=== PATIENT | male | born 1985 | race Two or more races ===

== ENCOUNTER 2017-08-16 11:23 | Emergency (ER) | payer OTHER ==
--- NOTE | 2017-08-16 11:47 | EDPHY ---
H & P Stated Complaint: L forearm lac Time Seen by Provider: 08/16/17 11:45 HPI/ROS: HPI: This is a 32-year-old male who presents with Chief Complaint: Left forearm laceration Location: Left forearm Quality: Laceration Duration: Prior to arrival Signs and Symptoms: + bleeding, no radiation, no numbness, no weakness, no tingling, no incontinence, no decreased range of motion, no swelling, + pain, no fever Timing: Acute Severity: Moderate Context: Patient is right-hand dominant presents with epps with complaints of arm laceration. He is currently working across the street, when he accidentally slipped on the scaffolding and fell forward. He used left arm to stop his fall. He brushed left forearm against the cinder block which caused a laceration. He reports that he was wearing his hard hat and did not hit his head. Denies LOC/head injury/neck pain/dizziness/nausea/vomiting/amnesia. Reports tetanus up-to-date. He complains of pain in his left forearm without any radiation. He reports that pain increases with touching the area. Denies decreased range of motion/paresthesias/weakness. Modifying Factors: Direct pressure Comment: ROS: see HPI Constitutional: No fever, no chills, no weight loss Eyes: No blurred vision Respiratory: No shortness of breath, no cough Cardiovascular: No chest pain Gastrointestinal: No nausea, no vomiting no diarrhea Genitourinary: No dysuria Extremities: No myalgias Neurologic: No weakness, no numbness Skin: No rashes Hematologic: No bruising, no bleeding MEDICAL/SURGICAL/SOCIAL HISTORY: Medical history: Depression, hyperlipidemia Surgical history: Denies Social history: Employed. CONSTITUTIONAL: Extremely anxious male, awake and alert, no obvious distress HEENT: Atraumatic and normocephalic, PERRL, EOMI. Nares patent; no rhinorrhea; no nasal mucosal edema. Tympanic membranes clear. Oropharynx clear, no exudate and moist pink mucosa. Airway patent. No lymphadenopathy. No meningismus. Cardiovascular: Normal S1/S2, regular rate, regular rhythm, without murmur rub or gallop. PULMONARY/CHEST: Symmetrical and nontender. Clear to auscultation bilaterally. Good air movement. No accessory muscle usage. ABDOMEN: Soft, nondistended, nontender, no rebound, no guarding, no peritoneal signs, no masses or organomegaly. No CVAT. EXTREMITIES: 2/2 pulses, strength 5/5, left posterior mid-forearm shows 6 inch deep, v-shaped, laceration; no active bleeding. Left WRIST: Extension to 70, flexion to 80, radial deviation to 20 degree, ulnar deviation to 30, no scaphoid tenderness, no tenderness over ulnar styloid, no tenderness over radial styloid. Full range of motion of flexion extension DIP, PIP, MCP joints of all 5 fingers. no clubbing, no cyanosis or edema. NEUROLOGICAL: no focal neuro deficits. GCS 15. SKIN: Warm and dry, no erythema. no rash. Good capillary refill. Source: Patient Exam Limitations: No limitations - Personal History Current Tetanus/Diphtheria Vaccine: Yes Current Tetanus Diphtheria and Acellular Pertussis (TDAP): Yes - Medical/Surgical History Hx Asthma: No Hx Chronic Respiratory Disease: No Hx Diabetes: No Hx Cardiac Disease: No Hx Renal Disease: No Hx Cirrhosis: No Hx Alcoholism: No Hx HIV/AIDS: No Hx Splenectomy or Spleen Trauma: No Other PMH: depression, hyperlipidemia, - Social History Smoking Status: Current every day smoker Constitutional: Initial Vital Signs Temperature (C) 36.8 C 08/16/17 11:31 Heart Rate 98 08/16/17 11:31 Respiratory Rate 20 08/16/17 11:31 Blood Pressure 143/93 H 08/16/17 11:31 O2 Sat (%) 92 08/16/17 11:31 O2 Delivery Mode Room Air Allergies/Adverse Reactions: No Known Allergies Allergy (Unverified 08/16/17 11:30) Home Medications: Medication Instructions Recorded 2 Depression Meds 08/16/17 Lipitor 08/16/17 Medical Decision Making - Diagnostics Imaging Results: Imaging Impressions Forearm X-Ray 08/16/17 12:00 Impression: 1. No acute osseous abnormality seen left forearm. 2. Laceration adjacent to the distal third of the ulna that appears to extend to the bony surface without fracture. Procedures: Procedure: Laceration repair. Verbal consent was obtained from the patient. The 6 inch, deep, complex, v- shaped laceration on the left mid forearm was anesthetized in the usual fashion using 10 mL of 0.5% bupivacaine with epinephrine. The wound was irrigated, draped and explored to its base with a gloved finger. There were no deep structures involved. No tendon injury was identified. The wound was repaired with continuous running 4-0 Prolene. The procedure was performed by myself. Procedure: Splint placement. A left Velcro wrist splint was applied by the Emergency Room electronic systems technician. After application of the splint I returned and re-examined the patient. The splint was adequately immobilizing the joint and distal to the splint the patient's circulation and sensation was intact. ED Course/Re-evaluation: Left forearm x-ray my read shows soft tissue injury, no fracture Tetanus up-to-date. Laceration repaired Given Percocet x1 No signs of neurovascular compromise/tenting of skin/compartment syndrome/ extremities and joints examined above and below area of concern and are neurovascularly intact/injury. Clean sterile dressing and left Velcro wrist splint given Written and verbal wound care instructions provided. Work limited duty note provided. This patient was seen under the supervision of my secondary supervising physician. I evaluated care for this patient independently. Differential Diagnosis: Differential diagnosis includes but is not limited to laceration, nerve injury, tendon injury, vascular injury. - Data Points Medications Given: Discontinued Medications Oxycodone/Acetaminophen (Percocet 5/325) 1 tab PO EDNOW ONE Stop: 08/16/17 12:21 Last Admin: 08/16/17 13:03 Dose: 1 tab Departure - Departure Disposition: Home, Routine, Self-Care Clinical Impression: Laceration of left forearm without complication Qualifiers: Encounter type: initial encounter Qualified Code(s): S51.812A - Laceration without foreign body of left forearm, initial encounter Condition: Good Instructions: Care For Your Stitches (ED), Laceration (ED) Additional Instructions: Keep the dressing dry and in place for 48 hours. After 48 hours, you may remove the dressing; wash the site daily with mild soap and water; then pat dry. Take Tylenol 650 mg every 4 hours and/or Ibuprofen 600 mg every 8 hours with food as needed for pain. Apply ice for 30 minutes at a time; 2-3 times per day for the next 1-2 days. Wear the splint except to shower until your sutures are removed. Wound Care Follow-Up: Removal of sutures in [10-14] days. Suture removal is complimentary in uncomplicated cases. Infection or abnormal findings would require reevaluation by the MD. In that case, you may be billed. Follow-up with Orthopedics as needed. Return to the ER immediately if you experience new or worsening pain, discoloration, numbness, tingling, or any other symptoms that concern you. Referrals: [facility],. [Clinic] - As per Instructions Mauro Harris MD [Medical Doctor] - As per Instructions Stand Alone Forms: Work Limited Duty
[2017-08-16] MEDS ORDERED: OXYCODONE/APAP 5/325 TAB PO ONE (12:20)
[2017-08-16 13:44] VITALS: BP 132/87
== END 2017-08-16 13:44 | disposition home or self-care (01) ==
PROC: 0HQEXZZ Repair Left Lower Arm Skin, External Approach (ICD-10-PCS; principal; 2017-08-16)
DX: S51.812A Laceration without foreign body of left forearm, initial encounter (principal); F17.200 Nicotine dependence, unspecified, uncomplicated; W01.198A Fall on same level from slipping, tripping and stumbling with subsequent striking against other object, initial encounter; Y92.410 Unspecified street and highway as the place of occurrence of the external cause; Y99.0 Civilian activity done for income or pay; Y93.89 Activity, other specified
CPT/HCPCS: L3908